=== PATIENT | male | born 1975 | race Caucasian/White ===

== ENCOUNTER 2020-08-29 15:45 | Emergency (ER) | payer OTHER ==
[2020-08-29 15:51] VITALS: TEMP 97.9
--- NOTE | 2020-08-29 16:24 | ED ---
Recheck HPI - General Chief Complaint: Recheck/Abnormal Lab/Rx Stated Complaint: [facility] - drug testing Time Seen by Provider: 08/29/20 15:57 Source: patient Mode of arrival: ambulatory Limitations: no limitations - History of Present Illness Initial Comments: 44-year-old male presents to emergency department for BAT and drug screen. Patient states he went on his lunch break while he was at work and had "couple of drinks" and returned back to work. States somebody noticed a sense of alcohol so he was advised to obtain alcohol and drug screening. He is denying any symptoms at this time. - Related Data Allergies Allergy/AdvReac Type Severity Reaction Status Date / Time erythromycin base Allergy Unknown Verified 08/29/20 15:51 Review of Systems ROS Statement: Those systems with pertinent positive or pertinent negative responses have been documented in the HPI. ROS Other: All systems not noted in ROS Statement are negative. Past Medical History Past Medical History: Hypertension Additional Past Medical History / Comment(s): hypercholestremia. Additional Past Surgical History / Comment(s): broken finger Past Psychological History: No Psychological Hx Reported Smoking Status: Never smoker Past Alcohol Use History: Occasional Past Drug Use History: None Reported General Exam Limitations: no limitations General appearance: alert, in no apparent distress Head exam: Present: atraumatic, normocephalic, normal inspection Eye exam: Present: normal appearance, PERRL, EOMI Pupils: Present: normal accommodation ENT exam: Present: normal exam, normal oropharynx, mucous membranes moist Neck exam: Present: normal inspection, full ROM. Absent: tenderness Respiratory exam: Present: normal lung sounds bilaterally. Absent: respiratory distress Cardiovascular Exam: Present: regular rate, normal rhythm, normal heart sounds. Absent: systolic murmur Extremities exam: Present: normal inspection, full ROM Back exam: Present: normal inspection, full ROM. Absent: tenderness Neurological exam: Present: alert, oriented X3, normal gait Psychiatric exam: Present: normal affect, normal mood Skin exam: Present: warm, dry, intact, normal color Course Vital Signs 08/29/20 15:48 Temperature 97.9 F Pulse Rate 105 H Respiratory 20 Rate Blood Pressure 164/100 O2 Sat by Pulse 98 Oximetry Medical Decision Making - Medical Decision Making 44 year old male presents to the emergency department with a chief complaint of breath alcohol test and drug screen. Physical examination is unremarkable. Patient is acting appropriately and answering all questions when prompted. Urine drug screen pending. Breath alcohol 0.130. Patient advised to follow up PCP. Advised to return if symptoms worsen. Case discussed with Disposition Clinical Impression: Encounter for drug screening Disposition: HOME SELF-CARE Condition: Stable Additional Instructions: Please return to the Emergency Department if symptoms worsen or any other concerns. Is patient prescribed a controlled substance at d/c from ED?: No Referrals: None,Stated [Primary Care Provider] - 1-2 days Time of Disposition: 17:13
[2020-08-29 17:23] VITALS: BP 151/104; PULSE 100; RESP 18
== END 2020-08-29 17:23 | disposition home or self-care (01) ==
LOC: EC 15:45
DX: Z02.83 Encounter for blood-alcohol and blood-drug test (principal); I10 Essential (primary) hypertension
CPT/HCPCS: 99281